=== PATIENT | female | born 2000 | race Two or more races ===

== ENCOUNTER 2024-08-29 11:48 | Emergency (ER) | payer MEDICAID ==
[~2024-08-29] VITALS: Ht 162.6 cm; Wt 71.6 kg
[2024-08-29 12:01] VITALS: BP 128/73; PULSE 73; RESP 20; TEMP 97.7; O2SAT 98
[2024-08-29] MEDS ORDERED: PROM1SOL4 PO (13:06)
[2024-08-29] MEDS ORDERED: PSEU240T PO (13:06)
[2024-08-29] MEDS ORDERED: TRIA55SP9 (13:06)
--- NOTE | 2024-08-29 13:06 | ED.PDOC ---
SOB-HPI HPI Comments 24 year old F presents for nasal congestion. Chief Complaint: Cough Time Seen by MD: 11:59 Primary Care Provider: UNKNOWN Reviewed notes: Nurses Notes, Medications, Allergies Information Source: Patient Mode of Arrival: Ambulatory All Other Systems: Reviewed and Negative (Per HPI) Physical Exam General Appearance: No Apparent Distress, Normal HEENT: Normal ENT Inspection, Pharynx Normal, TMs Normal Neck: Full Range of Motion, Non-Tender, Normal, Normal Inspection Respiratory: Chest Non-Tender, Lungs Clear, No Accessory Muscle Use, No Respiratory Distress, Normal Breath Sounds Cardiovascular: No Murmur, No Gallop, Regular Rate/Rhythm Breast Exam: Deferred Gastrointestinal: No Organomegaly, Non Tender, No Pulsatile Mass, Normal Bowel Sounds, Soft Genitalia: Deferred Pelvic: Deferred Rectal: Deferred Extremities: No calf tenderness, Normal capillary refill, Normal inspection, Normal range of motion, Non-tender, No pedal edema Musculoskeletal : Apperance: Normal Neurologic: Alert, No Motor Deficits, Normal Affect, Normal Mood, No Sensory Deficits Cerebellar Function: Normal Reflexes: Normal Skin: Dry, Normal Color, Warm Lymphatic: No Adenopathy Was a procedure done? Was a procedure done?: No Differential Dx Differential Diagnosis: URI X-Ray, Labs, Meds, VS Vital Signs Date Time Temp Pulse Resp B/P (MAP) Pulse Ox O2 Delivery O2 Flow Rate FiO2 08/29/24 12:01 97.7 73 20 128/73 (91) 98 97.7 08/29/24 12:01 73 20 98 Room Air 08/29/24 11:54 97.7 73 20 128/73 (91) 98 97.7 08/29/24 11:54 20 98 Room Air* 0 21 X-Ray, Labs, Meds, VS Comment History and physical consistent of URI Take medication as prescribed No concerns for pneumonia at this time. No risk factors. No indication for antibiotics Discussed that cough can linger up to 6 weeks after viral URI ED precautions if cough does not alleviate or if cough worsens Supportive care and return precautions discussed Counseled viral infection and explained that antibiotics would not be helpful in resolving the illness sooner. Recommended vitamin C, rest, handwashing, and symptomatic care. Expect 2-week course with possibly of cough lingering up to 6 weeks. Nonpharmacological remedies for fluids has been recommended as well Time of 1ST Reevaluation: 13:00 Reevaluation 1ST: Improved Patient Education/Counseling: Diagnosis, Treatment Family Education/Counseling: Diagnosis, Treatment Departure 1 Departure Time of Disposition: 13:02 Impression: Primary Impression: Viral syndrome Disposition: HOME / SELF CARE / HOMELESS Condition: Stable e-Prescriptions Promethazine-Dm (Promethazine Dm 6.25-15 mg/5Ml) 1 Erin Erin 5 ML PO TID for 10 Days, #150 ML 0 Refills Prov: JOHNATHON BLAIR SOLAR THERMAL INSTALLER 08/29/24 Triamcinolone Acetonide (Nasal (Nasal Allergy 24 Hour Mul) 55 Mcg/Act Spr 55 MCG NA DAILY for 30 Days, #1 KIT 0 Refills Prov: JOHNATHON BLAIR NP 08/29/24 Pseudoephedrine (Sudafed 24 Hour) 240 Mg Tab 240 MG PO DAILY for 10 Days, #10 TAB 0 Refills Prov: JOHNATHON BLAIR NP 08/29/24 Critical Care Note Critical Care Time?: No Stability Stability form required: No Heart Score Heart Score: Heart Score Response (Comments) Value History N/A 0 EKG N/A 0 Age N/A 0 Risk Factors N/A 0 Troponin N/A 0 Total 0 JOHNATHON BLAIR NP Aug 29, 2024 13:06
== END 2024-08-29 13:14 | disposition home or self-care (01) ==
LOC: ER 11:48
DX: B34.9 Viral infection, unspecified (principal); R05.9 Cough, unspecified; R09.81 Nasal congestion

== ENCOUNTER 2024-11-03 10:26 | Emergency (ER) | payer OTHER ==
[~2024-11-03] VITALS: Ht 160 cm; Wt 74.9 kg
[~2024-11-03 10:26] MED LIST: PROM1SOL4 PO; PSEU240T PO; TRIA55SP9
--- NOTE | 2024-11-03 10:55 | ED.PDOC ---
History of Present Illness HPI Comments 24-year-old female with no reported PMHx or PSHx presents with a chief complaint of cough x 3 days with associated intermittent fever and chills. Patient mentions that she has been feeling SOB with some coughing fits. Patient mentions that she has been having intermittent episodes of fever and having the chills. Patient denies any other symptoms at this time. Chief Complaint: Cough Time Seen by MD: 10:47 Primary Care Provider: UNKNOWN Reviewed Notes: Medications, Allergies Allergies: Coded Allergies: NO KNOWN ALLERGIES (Unverified , 08/29/24) Home Meds Active Scripts Azithromycin (Zithromax) 500 Mg Tab, 1 TAB PO DAILY, #5 TAB Prov:JACLYN BROOKS MD 11/03/24 Pseudoephedrine (Sudafed 24 Hour) 240 Mg Tab, 240 MG PO DAILY for 10 Days, #10 TAB 0 Refills Prov:JACLYN BROOKS MD 11/03/24 Promethazine-Dm (Promethazine Dm 6.25-15 mg/5Ml) 1 Rein Erin, 5 ML PO TID for 10 Days, #150 ML 0 Refills Prov:JOHNATHON BLAIR NP 08/29/24 Triamcinolone Acetonide (Nasal (Nasal Allergy 24 Hour Mul) 55 Mcg/Act Spr, 55 MCG NA DAILY for 30 Days, #1 KIT 0 Refills Prov:JOHNATHON BLAIR NP 08/29/24 Information Source: Patient Mode of Arrival: Ambulatory Severity: Moderate Timing: Days Duration: Since onset Prehospital treatment: None Past Medical History PAST MEDICAL HISTORY: Denies Surgical History: Denies all surgeries ONLINE EDUCATION MANAGER History: Denies all ONLINE EDUCATION MANAGER Hx Family History Family History: Reviewed,noncontributory to illness Social History Smoker: Non-Smoker Alcohol: Denies ETOH Use Drugs: Denies Drug Use Lives In: Home Constitutional: reports: chills, fever; denies: diaphoresis, fatigue, malaise, sweats, weakness, others EENTM: denies: blurred vision, double vision, ear bleeding, ear discharge, ear drainage, ear pain, ear ringing, eye pain, eye redness, hearing loss, mouth pain, mouth swelling, nasal discharge, nose bleeding, nose congestion, nose pain, photophobia, tearing, throat pain, throat swelling, voice changes, others Respiratory: reports: cough, shortness of breath; denies: hemoptysis, orthopnea, SOB at rest, SOB with excertion, stridor, wheezing, others Cardiovascular: denies: chest pain, dizzy spells, diaphoresis, Dyspnea on exertion, edema, irregular heart beat, left arm pain, lightheadedness, palpitations, PND, syncope, others Gastrointestinal: denies: abdomen distended, abdominal pain, blood streaked bowels, constipated, diarrhea, dysphagia, difficulty swallowing, hematemesis, melena, nausea, poor appetite, poor fluid intake, rectal bleeding, rectal pain, vomiting, others Genitourinary: denies: abnormal vagina bleeding, burning, dyspareunia, dysuria, flank pain, frequency, hematuria, incontinence, pain, , vagina discharge, urgency, others Neurological: denies: dizziness, fainting, headache, left sided numbness, left sided weakness, numbness, paresthesia, pre-existing deficit, right sided numbness, right sided weakness, seizure, speech problems, tingling, tremors, weakness, others Musculoskeletal: denies: back pain, gout, joint pain, joint swelling, muscle pain, muscle stiffness, neck pain, others Integumetry: denies: bruises, change in color, change in hair/nails, dryness, laceration, lesions, lumps, rash, wounds, others Allergic/Immunocompromised: denies: Difficulty Healing, Frequent Infections, Hives, Itching, others Hematologic/Lymphatic: denies: anemia, blood clots, easy bleeding, easy bruising, swollen glands, others Endocrine: denies: excessive hunger, excessive sweating, excessive thirst, excessive urination, flushing, intolerance to cold, intolerance to heat, unexplained weight gain, unexplained weight loss, others Psychiatric: denies: anxiety, bipolar disorder, depression, hopeless, panic disorder, schizophrenia, sleepless, suicidal, others All Other Systems: Reviewed and Negative Physical Exam General Appearance: No Apparent Distress HEENT: Normal ENT Inspection, Pharynx Normal, TMs Normal Neck: Full Range of Motion, Non-Tender, Normal, Normal Inspection Respiratory: Chest Non-Tender, Lungs Clear, No Accessory Muscle Use, No Respiratory Distress, Normal Breath Sounds Cardiovascular: No Edema, No JVD, No Murmur, No Gallop, Normal Peripheral Pulse s, Regular Rate/Rhythm Breast Exam: Deferred Gastrointestinal: No Organomegaly, Non Tender, No Pulsatile Mass, Normal Bowel Sounds, Soft Genitalia: Deferred Pelvic: Deferred Rectal: Deferred Extremities: No calf tenderness, Normal capillary refill, Normal inspection, Normal range of motion, Non-tender, No pedal edema Musculoskeletal : Apperance: Normal Neurologic: Alert, typesetter apprentice II-XII nml as Tested, No Motor Deficits, Normal Affect, Normal Mood, No Sensory Deficits Cerebellar Function: Normal Reflexes: Normal Skin: Dry, Normal Color, Warm Lymphatic: No Adenopathy Was a procedure done? Was a procedure done?: No Differential Dx Considerations may include: Bronchitis, pneumonia, generalized weakness X-Ray, Labs, Meds, VS Vital Signs Date Time Temp Pulse Resp B/P (MAP) Pulse Ox O2 Delivery O2 Flow Rate FiO2 11/03/24 10:36 17 96 Room Air 0 11/03/24 10:36 98.4 77 17 131/87 (102) 96 98.4 Chest X-Ray Impression: No evidence of acute disease. The patient is being discharged and will follow up with the primary care doctor The patient will return to the emergency department's condition worsens The patient was given a prescription of Zithromax The patient will return to the emergency department's the condition worsens. Images Reviewed?: Images reviewed and evaluated by me Time of 1ST Reevaluation: 10:47 Reevaluation 1ST: Unchanged Patient Education/Counseling: Diagnosis, Treatment, Prognosis, Need For Follow Up Family Education/Counseling: No Family Present Departure 1 Departure Time of Disposition: 11:40 Impression: Primary Impression: Acute bronchitis Qualified Codes: J20.9 - Acute bronchitis, unspecified Disposition: 01 HOME / SELF CARE / HOMELESS Condition: Fair e-Prescriptions Azithromycin (Zithromax) 500 Mg Tab 1 TAB PO DAILY, #5 TAB Prov: JACLYN BROOKS MD 11/03/24 Pseudoephedrine (Sudafed 24 Hour) 240 Mg Tab 240 MG PO DAILY for 10 Days, #10 TAB 0 Refills Prov: JACLYN BROOKS MD 11/03/24 Discharged With: Self Critical Care Note Critical Care Time?: No Stability Stability form required: No Heart Score Heart Score: Heart Score Response (Comments) Value History N/A 0 EKG N/A 0 Age N/A 0 Risk Factors N/A 0 Troponin N/A 0 Total 0 I personally scribed for JACLYN BROOKS MD ([email or web address]) on 11/03/24 at 10:55. Electronically submitted by Rory Chand ([email or web address]). I personally scribed for JACLYN BROOKS MD ([email or web address]) on 11/03/24 at 11:36. Electronically submitted by Rory Chand ([email or web address]). JACLYN BROOKS MD November 03, 2024 10:55
[2024-11-03] MEDS ORDERED: AZIT500T PO (10:56)
[2024-11-03] MEDS ORDERED: PSEU240T PO (10:56)
--- NOTE | 2024-11-03 11:31 | DVH ---
CHEST RADIOGRAPH Indication: cough Technique: Frontal and lateral view of the chest was obtained Comparison: None FINDINGS: Lines and Tubes: None Lungs: Clear Pleura: No effusion. No pneumothorax. Cardiomediastinal contours: Unremarkable Bones: Unremarkable IMPRESSION: No evidence of acute disease.
[2024-11-03 11:49] VITALS: BP 123/73; PULSE 68; RESP 16; TEMP 98.5; O2SAT 97
== END 2024-11-03 11:53 | disposition home or self-care (01) ==
LOC: ER 10:26
DX: J20.9 Acute bronchitis, unspecified (principal); Z79.899 Other long term (current) drug therapy
CPT/HCPCS: 71046

== ENCOUNTER 2025-03-21 10:50 | Emergency (ER) | payer OTHER ==
[~2025-03-21] VITALS: Ht 160 cm; Wt 75.0 kg
[~2025-03-21 10:50] MED LIST changes: +AZIT500T PO
[2025-03-21] MEDS ORDERED: AZIT-43 PO (11:36)
[2025-03-21] MEDS ORDERED: IBUP-1454 PO (11:36)
[2025-03-21] MEDS ORDERED: PROM1SOL4 PO (11:36)
--- NOTE | 2025-03-21 11:36 | ED.PDOC ---
Eye-HPI HPI Comments 24-year-old female presents to the ER with the chief complaint of flu-like symptoms. Patient reports on having a sore throat, nasal congestion, chills, shortness of breath, headache for the past three days. Patient states that she has been taking home remedies with a mild relief. Denies any other symptoms at this time. Denies fevers chills night sweats unintentional weight loss Denies persistent chest pain, shortness of breath, leg swelling Denies history of asthma nor any breathing conditions Denies history of pneumonia Denies recent international travel Chief Complaint: Flu like Time Seen by MD: 11:00 Primary Care Provider: UNKNOWN Reviewed Notes: Nurses Notes, Medications, Allergies Allergies: Coded Allergies: NO KNOWN ALLERGIES (Unverified , 08/29/24) Home Meds Active Scripts Ibuprofen (Ibuprofen) 600 Mg Tab, 1 TAB PO TID for 10 Days, #30 TAB 0 Refills Prov:JOHNATHON BLAIR NP 03/21/25 Promethazine-Dm (Promethazine Dm 6.25-15 mg/5Ml) 1 Erin Erin, 5 ML PO TIDPRN PRN for 10 Days, #150 ML 0 Refills Prov:JOHNATHON BLAIR NP 03/21/25 Azithromycin (Azithromycin) 250 Mg Tab, 250 MG PO DAILY MDD 500 for 5 Days, #6 TAB 0 Refills 2 TABLETS ORALLY ON DAY ONE, THEN 1 TABLET ORALLY DAILY FOR 4 DAYS Prov:JOHNATHON BLAIR NP 03/21/25 Azithromycin (Zithromax) 500 Mg Tab, 1 TAB PO DAILY, #5 TAB Prov:JACLYN BROOKS MD 11/03/24 Pseudoephedrine (Sudafed 24 Hour) 240 Mg Tab, 240 MG PO DAILY for 10 Days, #10 TAB 0 Refills Prov:JACLYN BROOKS MD 11/03/24 Promethazine-Dm (Promethazine Dm 6.25-15 mg/5Ml) 1 Erin Erin, 5 ML PO TID for 10 Days, #150 ML 0 Refills Prov:JOHNATHON BLAIR NP 08/29/24 Triamcinolone Acetonide (Nasal (Nasal Allergy 24 Hour Mul) 55 Mcg/Act Spr, 55 MCG NA DAILY for 30 Days, #1 KIT 0 Refills Prov:JOHNATHON BLARI NP 08/29/24 Information Source: Patient Mode of Arrival: Ambulatory Timing: Days Duration: Since onset, Days Prehospital treatment: None Quality: Pain Lids: Normal Conjunctiva: Normal Cornea: Normal Pupils: Normal EOM: Normal Fundus: Normal Slit lamp exam: Normal Anterior chamber: Normal Mouth: Normal ENT Ear Exam: Normal Nose: Normal Sinuses: Normal Oropharynx: Normal Onset: Spontaneous Throat Exposed to: None History of: None Associated signs and symptoms: Chills, Nasal Symptoms, Sore Throat Past Medical History PAST MEDICAL HISTORY: Denies Surgical History: Denies all surgeries BUSINESS PERFORMANCE MANAGER History: Denies all BUSINESS PERFORMANCE MANAGER Hx Family History Family History: Reviewed,noncontributory to illness, Unknown Social History Smoker: Non-Smoker Alcohol: Denies ETOH Use Drugs: Denies Drug Use Lives In: Home Constitutional: reports: chills; denies: diaphoresis, fatigue, fever, malaise, sweats, weakness, others EENTM: reports: nose congestion, throat pain, throat swelling; denies: blurred vision, double vision, ear bleeding, ear discharge, ear drainage, ear pain, ear ringing, eye pain, eye redness, hearing loss, mouth pain, mouth swelling, nasal discharge, nose bleeding, nose pain, photophobia, tearing, voice changes, others Respiratory: reports: shortness of breath; denies: cough, hemoptysis, orthopnea, SOB at rest, SOB with excertion, stridor, wheezing, others Cardiovascular: denies: chest pain, dizzy spells, diaphoresis, Dyspnea on exertion, edema, irregular heart beat, left arm pain, lightheadedness, palpita tions, PND, syncope, others Gastrointestinal: denies: abdomen distended, abdominal pain, blood streaked keyshawn wels, constipated, diarrhea, dysphagia, difficulty swallowing, hematemesis, melena, nausea, poor appetite, poor fluid intake, rectal bleeding, rectal pain, vomiting, others Genitourinary: denies: abnormal vagina bleeding, burning, dyspareunia, dysuria, flank pain, frequency, hematuria, incontinence, pain, , vagina discharge, urgency, others Neurological: reports: headache; denies: dizziness, fainting, left sided numbness, left sided weakness, numbness, paresthesia, pre-existing deficit, right sided numbness, right sided weakness, seizure, speech problems, tingling, tremors, weakness, others Musculoskeletal: denies: back pain, gout, joint pain, joint swelling, muscle pain, muscle stiffness, neck pain, others Integumetry: denies: bruises, change in color, change in hair/nails, dryness, laceration, lesions, lumps, rash, wounds, others Allergic/Immunocompromised: denies: Difficulty Healing, Frequent Infections, Hives, Itching, others Hematologic/Lymphatic: denies: anemia, blood clots, easy bleeding, easy bruising, swollen glands, others Endocrine: denies: excessive hunger, excessive sweating, excessive thirst, excessive urination, flushing, intolerance to cold, intolerance to heat, unexplained weight gain, unexplained weight loss, others Psychiatric: denies: anxiety, bipolar disorder, depression, hopeless, panic d isorder, schizophrenia, sleepless, suicidal, others All Other Systems: Reviewed and Negative Physical Exam Exam Comments Uvula midline, no tonsillar exudate General Appearance: No Apparent Distress, Normal HEENT: Normal ENT Inspection, Pharynx Normal, TMs Normal Neck: Full Range of Motion, Non-Tender, Normal, Normal Inspection Respiratory: Chest Non-Tender, Lungs Clear, No Accessory Muscle Use, No Respiratory Distress, Normal Breath Sounds Cardiovascular: No Edema, No JVD, No Murmur, No Gallop, Normal Peripheral Pulses, Regular Rate/Rhythm Breast Exam: Deferred Gastrointestinal: No Organomegaly, Non Tender, No Pulsatile Mass, Normal Bowel Sounds, Soft Genitalia: Deferred Pelvic: Deferred Rectal: Deferred Extremities: No calf tenderness, Normal capillary refill, Normal inspection, Normal range of motion, Non-tender, No pedal edema Musculoskeletal : Apperance: Normal Neurologic: Alert, refrigeration brazer/solderer II-XII nml as Tested, No Motor Deficits, Normal Affect, Normal Mood, No Sensory Deficits Cerebellar Function: Normal Reflexes: Normal Skin: Dry, Normal Color, Warm Lymphatic: No Adenopathy Was a procedure done? Was a procedure done?: No EENT DIFF Eye: N/A Ear: N/A Nose: N/A Mouth: N/A Sore Throat: N/A X-Ray, Labs, Meds, VS Vital Signs Date Time Temp Pulse Resp B/P (MAP) Pulse Ox O2 Delivery O2 Flow Rate FiO2 03/21/25 11:58 78 16 97 Room Air 03/21/25 11:58 98.2 88 16 142/89 (106) 97 98.2 03/21/25 10:52 98.2 94 16 124/88 98 98.2 X-Ray, Labs, Meds, VS Comment 24-year-old female presents to the ER with the chief complaint of flu-like symptoms. Patient arrives alert and oriented, ABC's intact, afebrile, vital signs stable, saturating well in room air The patient is overall well-appearing nontoxic on exam. On physical exam, respirations even and unlabored, clear to auscultation bilaterally. Oxygen stable on room air. Did not have any focal lung findings and therefore chest x-ray was not indicated during this exam Low suspicion of strep pharyngitis given physical exam findings and patient's presenting symptoms No signs of meningismus on exam Overall, the patient is well hydrated and nontoxic. Plan for symptomatic control for fever and pain as needed. The patient was able to tolerate p.o. intake in the ED. at this time, patient is safe for discharge home. The exam findings and plan discussed. We will discharge home with PCP follow up and strict return precautions. Discussed that cough can linger up to 6 weeks after viral URI Supportive care and return precautions discussed Counseled viral infection and explained that antibiotics would not be helpful in resolving the illness sooner. Recommended vitamin C, rest, handwashing, and symptomatic care. Expect 2-week course with possibly of cough lingering up to 6 weeks. Nonpharm acological remedies for fluids has been recommended as wel Additional MDM Review of External, Non-ED records: External records reviewed. Discussion with independent historian (EMS, family) history obtained from the patient/parents (if applicable) at bedside Chronic conditions affecting care: None Social determinants of health affecting care: None Consideration of admission (observation or admission): I considered escalation of care to admission for this patient, however given the reassuring workup, the patient is safe for outpatient management. Discussion with the Radiology: No Tests considered but not performed: Prescription medication considered but not given: Time of 1ST Reevaluation: 11:30 Reevaluation 1ST: Unchanged Patient Education/Counseling: Diagnosis, Treatment, Prognosis Family Education/Counseling: No Family Present SEPSIS Sepsis Screen Date sepsis recognized/suspect: Mar 21, 2025 Time Sepsis recognized/suspect: 1053 Recent Procedure: No On Antibiotic Therapy: No Respiratory Rate >20: No Heart Rate >90: No Temp<36 C (96.8 F) or >38.3 C: No SBP <90 or MAP <65 mmHG: No New Acute Mental Status Change: No Is the patient on CPAP, BIPAP,: No Vital Signs Date Time Temp Pulse Resp B/P (MAP) Pulse Ox O2 Delivery O2 Flow Rate FiO2 03/21/25 11:58 78 16 97 Room Air 03/21/25 11:58 98.2 88 16 142/89 (106) 97 98.2 03/21/25 10:52 98.2 94 16 124/88 98 98.2 Departure 1 Departure Time of Disposition: 11:34 Impression: Primary Impression: Acute bronchitis Qualified Codes: J20.9 - Acute bronchitis, unspecified Disposition: HOME / SELF CARE / HOMELESS Condition: Stable e-Prescriptions Ibuprofen (Ibuprofen) 600 Mg Tab 1 TAB PO TID for 10 Days, #30 TAB 0 Refills Prov: JOHNATHON BLAIR NP 03/21/25 Promethazine-Dm (Promethazine Dm 6.25-15 mg/5Ml) 1 Erin Erin 5 ML PO TIDPRN PRN for 10 Days, #150 ML 0 Refills Prov: JOHNATHON BLAIR NP 03/21/25 Azithromycin (Azithromycin) 250 Mg Tab 250 MG PO DAILY MDD 500 for 5 Days, #6 TAB 0 Refills 2 TABLETS ORALLY ON DAY ONE, THEN 1 TABLET ORALLY DAILY FOR 4 DAYS Prov: JOHNATHON BLAIR NP 03/21/25 Discharged With: Self Critical Care Note Critical Care Time?: No Stability Stability form required: No Heart Score Heart Score: Heart Score Response (Comments) Value History N/A 0 EKG N/A 0 Age N/A 0 Risk Factors N/A 0 Troponin N/A 0 Total 0 I personally scribed for JOHNATHON BLAIR NP ([email or web address]) on 03/21/25 at 11:43. Electronically submitted by Gaurav Wood ([email or web address]). JOHNATHON BLAIR NP Mar 21, 2025 11:36
[2025-03-21 11:58] VITALS: BP 142/89; PULSE 78; RESP 16; TEMP 98.2; O2SAT 97
== END 2025-03-21 12:00 | disposition home or self-care (01) ==
LOC: ER 10:53
DX: J20.9 Acute bronchitis, unspecified (principal); R09.81 Nasal congestion; R06.02 Shortness of breath